=== PATIENT | female | born 1970 | race Caucasian/White ===

== ENCOUNTER 2019-10-18 18:59 | Inpatient (IN) | payer OTHER ==
[2019-10-18 20:35] VITALS: BMI 27.3
--- NOTE | 2019-10-18 21:17 | HP ---
CIWA Score Nausea/Vomitin-Mild Nausea/No Vomiting Muscle Tremors: 4-Moderate,w/Arms Extend Anxiety: 1-Mildly Anxious Agitation: 1-Slight > Activity Paroxysmal Sweats: 3 Orientation: 1-Uncertain about Date Tacttile Disturbances: 2-Mild Itch/Numbness/Burn Auditory Disturbances: 0-None Visual Disturbances: 0-None Headache: 3-Moderate CIWA-Ar Total Score: 16 - Admission Criteria OASAS Guidelines: Admission for Medically Managed Detox: Requires at least one of the followin. CIWA greater than 12 2. Seizures within the past 24 hours 3. Delirium tremens within the past 24 hours 4. Hallucinations within the past 24 hours 5. Acute intervention needed for co occurring medical disorder 6. Acute intervention needed for co occurring psychiatric disorder 7. Severe withdrawal that cannot be handled at a lower level of care (continued vomiting, continued diarrhea, abnormal vital signs) requiring intravenous medication and/or fluids 8. Patient presents the following: CIWA greater than 12 Admission Criteria Met: Admission criteria met Admission ROS S - [facility] Chief Complaint: here for alcohol detox. Allergies/Adverse Reactions: Allergies Allergy/AdvReac Type Severity Reaction Status Date / Time No Known Allergies Allergy Verified 10/18/19 20:26 History of Present Illness: HERE FOR ALCOHOL DETOX. CLIENT IS REFERRED BY [facility] AFTER PRESENTING THERE FOR HELP. SHE REPORTS DAILY ALCOHOL INTAKE . LAST USE EARLIER TODAY DUE TO WITHDRAWAL SX'S. 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 DENIES AVH, SI, SEIZURE D/O. DENIES ANY SIGNIFICANT PERIOD OF CLEAN TIME. HOMELESS, UNEMPLOYED, DENIES LEGALS CLIENT REPORTS HEROIN ABUSE APPROX 1 TIME A MONTH STATES ITS NOT HER DRUG OF CHOICE. LAST USE 2 DAYS AGO 1 BAG Exam Limitations: Physical Impairment (AMBULATES WITH CANE 2/2 R SIDED WEAKNESS D/T STROKE) - Ebola screening Have you traveled outside of the country in the last 21 days: No Have you had contact with anyone from an Ebola affected area: No Do you have a fever: No Patient History - Patient Medical History Hx Anemia: No Hx Asthma: Yes Hx Chronic Obstructive Pulmonary Disease (COPD): No Hx Cancer: No Hx Cardiac Disorders: No Hx Congestive Heart Failure: No Hx Hypertension: Yes Hx Hypercholesterolemia: Yes Hx Pacemaker: No HX Cerebrovascular Accident: Yes (2011 WITH R SIDED WEAKNESS) Hx Seizures: No Hx Dementia: No Hx Diabetes: No Hx Gastrointestinal Disorders: No Hx Liver Disease: Yes (CIRRHOSIS) Hx Genitourinary Disorders: No Hx Sexually Transmitted Disorders: No Hx Renal Disease (ESRD): No Hx Thyroid Disease: No Hx Human Immunodeficiency Virus (HIV): No Hx Hepatitis C: Yes (NO TXMENT) Hx Depression: Yes Hx Suicide Attempt: No Hx Bipolar Disorder: Yes Hx Schizophrenia: No Other Medical History: DENIES - Patient Surgical History Past Surgical History: Yes Other Surgical History: FACIAL FX REPAIR Anesthesia Reaction: No - PPD History Previous Implant?: Yes Documented Results: Negative w/o proof Implanted On Prior [facility] Admission?: No PPD to be Administered?: Yes - Reproductive History Patient is a Female of Child Bearing Age (11 -55 yrs old): Yes Last Menstrual Period: 09/08/19 LMP comment: SPOTTED Patient : No ([facility] [place] - Smoking Cessation Smoking history: Current every day smoker Have you smoked in the past 12 months: Yes Aproximately how many cigarettes per day: 10 Cigars Per Day: 1 Hx Chewing Tobacco Use: No Initiated information on smoking cessation: Yes 'Breaking Loose' booklet given: 10/18/19 - Substance & Tx. History Hx Alcohol Use: Yes Hx Substance Use: Yes Substance Use Type: Alcohol, Cocaine, Heroin Hx Substance Use Treatment: Yes ([facility]) - Substances abused Alcohol Substance route: Oral Frequency: Daily Amount used: liquor- 2 pints, beer- 1 six pack Age of first use: 18 Date of last use: 10/18/19 (1 PINT) Crack Substance route: Smoking Frequency: 3-6 times per week (3X) Amount used: 3 dimes Age of first use: 32 Date of last use: 10/17/19 Marijuana/Hashish Substance route: Smoking Frequency: 3-6 times per week (3X) Amount used: 1 DIME BAG Age of first use: 32 Date of last use: 10/17/19 Heroin Substance route: Smoking Frequency: 1-3 times last 30 days Amount used: 1 bag Age of first use: 22 Date of last use: 10/17/19 Admission Physical Exam BHS - Vital Signs Vital Signs: Vital Signs - 24 hr 10/18/19 20:20 Temperature 98.9 F Pulse Rate 100 H Respiratory 18 Rate Blood Pressure 116/74 - Physical General Appearance: Yes: Moderate Distress, Tremorous, Irritable, Anxious, Other (LEFT FACIAL DROOP) HEENTM: Yes: EOMI, Normocephalic, Normal Voice, MANISHA, Pharynx Normal, Other ( MISSING TEETH) Respiratory: Yes: Chest Non-Tender, Lungs Clear, Normal Breath Sounds, No Respiratory Distress, No Accessory Muscle Use Neck: Yes: No masses,lesions,Nodules, Supple, Trachea in good position Breast: Yes: Breasts Symetrical Cardiology: Yes: Regular Rhythm, Regular Rate, S1, S2 Abdominal: Yes: Normal Bowel Sounds, Non Tender, Soft Genitourinary: Yes: Within Normal Limits Back: Yes: Normal Inspection Musculoskeletal: Yes: Other (UNSTEADY GAIT AMBULATES WITH CANE) Extremities: Yes: Normal Range of Motion, Non-Tender, Tremors, Other (LEFT ARM PARALYSIS 2/2 TO STROKE WITH LLE WEAKNESS) Neurological: Yes: Fully Oriented, Alert, Motor Strength 5/5, Depressed Affect Integumentary: Yes: Dry, Warm, Other (FLUSHED) Lymphatic: Yes: Within Normal Limits - Diagnostic (1) Alcohol dependence with withdrawal, uncomplicated Current Visit: Yes Status: Acute (2) Non compliance w medication regimen Current Visit: Yes Status: Suspected Comment: CLIENT REPORTS NOT TAKING MEDS DUE TO ALCOHOL ABUSE (3) Cerebrovascular accident (CVA) with right hemiparesis Current Visit: Yes Status: Chronic (4) HTN (hypertension) Current Visit: Yes Status: Chronic Qualifiers: Hypertension type: essential hypertension Qualified Code(s): I10 - Essential (primary) hypertension (5) HLD (hyperlipidemia) Current Visit: Yes Status: Chronic Qualifiers: Hyperlipidemia type: unspecified Qualified Code(s): E78.5 - Hyperlipidemia , unspecified (6) Depressed affect Current Visit: Yes Status: Acute (7) Ambulates with cane Current Visit: Yes Status: Chronic (8) Asthma Current Visit: Yes Status: Chronic Qualifiers: Asthma severity: mild Asthma persistence: intermittent Asthma complication type: unspecified Qualified Code(s): J45.20 - Mild intermittent asthma, uncomplicated (9) Cirrhosis of liver Current Visit: Yes Status: Chronic Qualifiers: Hepatic cirrhosis type: alcoholic cirrhosis (10) History of hepatitis C Current Visit: Yes Status: Chronic (11) Paralysis of left upper extremity Current Visit: Yes Status: Chronic Cleared for Admission S - Detox or Rehab S Level of Care: Medically Managed Detox Regimen/Protocol: Librium Claeared for Rehab Admission: No Breathalyzer - Breathalyzer Breathalyzer: 0.040 Urine Drug Screen - Test Device Lot number: [id number] Expiration date: 05/07/21 - Control Is test valid?: Yes - Results Drug screen NEGATIVE: No Urine drug screen results: BZO-Benzodiazepines Inpatient Rehab Admission - Rehab Decision to Admit Inpatient rehab admission?: No
[2019-10-18] MEDS ORDERED: ONDANSETRON *ODT* 4 MG TABLET SL PRN (21:26)
[2019-10-18] MEDS ORDERED: MAG HYDROX/AL HYDROX/SIMETH 30 ML UNIT-DOSE CUP PO PRN (21:26)
[2019-10-18] MEDS ORDERED: IBUPROFEN 400 MG TABLET (FP) PO PRN (21:26)
[2019-10-18] MEDS ORDERED: NICOTINE POLACRILEX 2 MG GUM BUC PRN (21:26)
[2019-10-18] MEDS ORDERED: guaiFENesin 200 MG/10 ML 10 ML UNIT-DOSE CUPS PO PRN (21:26)
[2019-10-18] MEDS ORDERED: hydrOXYzine PAMOATE 25 MG CAPSULE (FP) PO PRN (21:26)
[2019-10-18] MEDS ORDERED: ACETAMINOPHEN 325 MG TABLET (FP) PO PRN ×2 (21:26)
[2019-10-18] MEDS ORDERED: MENTHOL/PHENOL 1 EACH UD MM PRN (21:26)
[2019-10-18] MEDS ORDERED: DICYCLOMINE HCL 10 MG CAPSULE PO PRN (21:26)
[2019-10-18] MEDS ORDERED: METHOCARBAMOL 500 MG TABLET PO PRN (21:26)
[2019-10-18] MEDS ORDERED: MAGNESIUM CITRATE 300 ML BOTTLE PO PRN (21:26)
[2019-10-18] MEDS ORDERED: MAGNESIUM HYDROX 2400MG/30ML ORAL SUSPENSION 30 ML CUP PO PRN (21:26)
[2019-10-18] MEDS ORDERED: P-EPHED 60MG/TRIPROLIDI 2.5MG TABLET PO PRN (21:26)
[2019-10-18] MEDS ORDERED: chlordiazePOXIDE HCL 25 MG CAPSULE PO PRN (21:26)
[2019-10-18] MEDS: chlordiazePOXIDE HCL 25 MG CAPSULE PO SCH (22:54)
[2019-10-18] MEDS: THIAMINE HCL 100 MG TABLET (FP) PO SCH (22:54)
[2019-10-19] MEDS: chlordiazePOXIDE HCL 25 MG CAPSULE PO SCH ×3 (06:02→18:08)
--- NOTE | 2019-10-19 09:01 | EKG ---
Test Reason : Blood Pressure : / mmHG Vent. Rate : 093 BPM Atrial Rate : 093 BPM P-R Int : 132 ms QRS Dur : 076 ms QT Int : 360 ms P-R-T Axes : 048 035 039 degrees QTc Int : 447 ms NORMAL SINUS RHYTHM NORMAL ECG NO PREVIOUS ECGS AVAILABLE Confirmed by SHANNON ZAMORA MD ([id number]) on 10/19/2019 9:00:48 AM Referred By: Confirmed By:SHANNON ZAMORA MD
[2019-10-19 09:51] LABS: HEMATOCRIT 35.8 % (32.4-45.2); HEMOGLOBIN 11.9 GM/dL (10.7-15.3); MCH 30.8 pg (25.7-33.7); MCHC 33.1 g/dl (32.0-36.0); MEAN CELL VOLUME 93.2 fl (80-96); MEAN PLT VOLUME 10.1 fl (7.5-11.1); PLATELET COUNT 128 K/MM3 (134-434); RBC 3.85 M/mm3 (3.60-5.2); RDW 15.1 % (11.6-15.6); WHITE BLOOD COUNT 5.8 K/mm3 (4.0-10.0)
[2019-10-19 10:00] LABS: ALBUMIN 3.3 g/dl (3.4-5.0); BILIRUBIN,TOTAL 0.6 mg/dL (0.2-1); CALCIUM 8.8 mg/dL (8.5-10.1); CREATININE 0.7 mg/dL (0.55-1.3); POTASSIUM 3.4 mmol/L (3.5-5.1); TOT PROT 7.4 g/dl (6.4-8.2)
[2019-10-19] MEDS: NICOTINE 14 MG/24 HOURS TOPICAL PATCH TD SCH (10:03)
[2019-10-19] MEDS: ASPIRIN 81 MG CHEWABLE TABLETS PO SCH (10:03)
[2019-10-19] MEDS: PRENATAL VITAMINS W/ FOLIC ACID TABLET (FP) PO SCH (10:03)
--- NOTE | 2019-10-19 12:32 | PN ---
S CIWA - CIWA Score Nausea/Vomitin-No Nausea/No Vomiting Muscle Tremors: 2 Anxiety: 2 Agitation: 3 Paroxysmal Sweats: 2 Orientation: 0-Oriented Tacttile Disturbances: 0-None Auditory Disturbances: 0-None Visual Disturbances: 0-None Headache: 0-None Present CIWA-Ar Total Score: 9 BHS Progress Note (SOAP) Subjective: sweats shakes irritable agitation restless body aches Objective: 10/19/19 12:44 Vital Signs Temperature 97.8 F 10/19/19 09:36 Pulse Rate 84 10/19/19 09:36 Respiratory Rate 18 10/19/19 09:36 Blood Pressure 113/67 10/19/19 09:36 O2 Sat by Pulse Oximetry (%) Laboratory Tests 10/19/19 10/19/19 10/19/19 07:15 07:15 07:15 WBC 5.8 RBC 3.85 Hgb 11.9 Hct 35.8 MCV 93.2 MCH 30.8 MCHC 33.1 RDW 15.1 Plt Count 128 L MPV 10.1 Sodium 139 Potassium 3.4 L Chloride 103 Carbon Dioxide 30 Anion Gap 6 L BUN 23.0 H Creatinine 0.7 Est GFR (CKD-EPI)AfAm 120.43 Est GFR (CKD-EPI)NonAf 103.90 Random Glucose 101 Calcium 8.8 Total Bilirubin 0.6 AST 72 H ALT 100 H Alkaline Phosphatase 85 Total Protein 7.4 Albumin 3.3 L RPR Titer Nonreactive aaox3 ambulating no acute distress hypokalemia 3.4 noted Assessment: 10/19/19 12:47 withdrawals Plan: continue detox increase fluids kdur 20meq x 2 days
[2019-10-19] MEDS: ENALAPRIL MALEATE 10 MG TABLET (FP) PO SCH (14:22)
--- NOTE | 2019-10-19 17:26 | CONSULT ---
[facility] Psychiatric Consult - Data Date of interview: 10/19/19 Admission source: [facility] Identifying data: First visit at [facility] and admission to [address] [place] [address] for this 48 y/o female reffered from [facility] for detoxification treatment. BRAYDON issues : heroin, alcohol, cocaine/crack, cannabis, nicotine. Patient is single, a mother of five, homeless (longterm resident), unemployed, disbaled and currently deprived of financial assistance ([employer]I benefits revoked for failure to keep revalidation appointments). Substance Abuse History: Discussed with the patient. Details in current [facility] report as follows : Smoking history: Current every day smoker. Have you smoked in the past 12 months: Yes. Aproximately how many cigarettes per day: 10. Cigars Per Day: 1. Hx Chewing Tobacco Use: No. Initiated information on smoking cessation: Yes. 'Breaking Loose' booklet given: 10/18/19. - Substance & Tx. History. Hx Alcohol Use: Yes. Hx Substance Use: Yes. Substance Use Type : Alcohol, Cocaine, Heroin. Hx Substance Use Treatment: Yes ([facility]). - Substances abused. Alcohol. Substance route: Oral. Frequency: Daily. Amount used: liquor- 2 pints, beer- 1 six pack. Age of first use: 18. Date of last use: 10/18/19 (1 PINT). Crack. Substance route: Smoking. Frequency: 3 -6 times per week (3X). Amount used: 3 dimes. Age of first use: 32. Date of last use: 10/17/19. Marijuana/Hashish. Substance route: Smoking. Frequency : 3-6 times per week (3X). Amount used: 1 DIME BAG. Age of first use: 32. Date of last use: 10/17/19. Heroin. Substance route: Smoking. Frequency: 1 -3 times last 30 days. Amount used: 1 bag. Age of first use: 22. Date of last use: 10/17/19 Medical History: Medical profile is remarkable for dyslipidemia, hypertension, bronchial asthma, hepatitis C, cirrosis of the liver and antecedent of CVA with left-sided weakness. Patient uses a cane for ambulation (noted at bedside). Psychiatric History: Patient admits to a history of psychiatric hospitalizations (facilities in [place]). None in [place]. Ms Montoya states that she has been diagnosed with bipolar disorder and treated, in the past, with valproate + seroquel + trazodone. She reports total non-adherence to medications and psychiatric OPD care. " I have not taken seroquel for some months now. I take depakote sometimes. I go to emergency rooms hwenever I need medications." She used to see a cook apprentice pastry Bindu Armas at the [facility] in [facility]. Patient denies recent history of suicide attempts (recalls one overdose with pills years ago). Physical/Sexual Abuse/Trauma History: Severe stressors : homelessness, poverty, lack of a support network, addictions and serious medical illnesses. Additional Comment: Urine drug screen results: BZO-Benzodiazepines. Noted. Mental Status Exam - Mental Status Exam Alert and Oriented to: Time, Place, Person Cognitive Function: Good Patient Appearance: Unkempt, Disheveled Mood: Withdrawn, Hopeful Affect: Mood Congruent, Constricted Patient Behavior: Fatigued, Appropriate, Cooperative Speech Pattern: Clear Voice Loudness: Normal Thought Process: Goal Oriented Thought Disorder: Not Present Hallucinations: Denies Suicidal Ideation: Denies Homicidal Ideation: Denies Insight/Judgement: Poor Sleep: Fair Appetite: Good Gait/Station: Other (not observed. Not out of bed for entire shift) Psychiatric Findings - Problem List (Junior 1, 2,3) (1) Alcohol dependence with withdrawal, uncomplicated Current Visit: Yes Status: Acute (2) Nicotine dependence Current Visit: Yes Status: Chronic (3) Substance induced mood disorder Current Visit: Yes Status: Chronic (4) History of bipolar disorder Current Visit: Yes Status: Chronic (5) Non-compliance Current Visit: Yes Status: Chronic - Initial Treatment Plan Initial Treatment Plan: Psychoeducation. Sleep hygiene. Detoxification. Support. Observation.
[2019-10-19] MEDS: BISMUTH SUBSALICYLATE 524 MG/30 ML UD PO PRN (18:10)
[2019-10-20] MEDS: chlordiazePOXIDE HCL 25 MG CAPSULE PO SCH ×5 (00:16→22:11)
[2019-10-20] MEDS: THIAMINE HCL 100 MG TABLET (FP) PO SCH ×2 (00:16→22:11)
[2019-10-20] MEDS: MELATONIN 5 MG TABLETS PO PRN ×2 (02:17→22:11)
[2019-10-20] MEDS: ASPIRIN 81 MG CHEWABLE TABLETS PO SCH (10:37)
[2019-10-20] MEDS: HYDROCHLOROTHIAZIDE 25 MG TABLET (FP) PO SCH (10:37)
[2019-10-20] MEDS: NICOTINE 14 MG/24 HOURS TOPICAL PATCH TD SCH (10:37)
[2019-10-20] MEDS: PRENATAL VITAMINS W/ FOLIC ACID TABLET (FP) PO SCH (10:37)
[2019-10-20] MEDS: ENALAPRIL MALEATE 10 MG TABLET (FP) PO SCH (10:37)
[2019-10-20 12:25] LABS: PH,URINE 6.5 (5.0-8.0); URINE APPEARANCE CLOUDY; URINE BILIRUBIN NEGATIVE (NEGATIVE); URINE COLOR YELLOW; URINE GLUCOSE (UA) NEGATIVE (NEGATIVE); URINE KETONE NEGATIVE (NEGATIVE); URINE LEUK ESTERASE NEGATIVE (NEGATIVE); URINE NITRITE NEGATIVE (NEGATIVE); URINE PROTEIN NEGATIVE (NEGATIVE)
--- NOTE | 2019-10-20 15:50 | PN ---
[facility] CIWA - CIWA Score Nausea/Vomitin-No Nausea/No Vomiting Muscle Tremors: 2 Anxiety: 2 Agitation: 1-Slight > Activity Paroxysmal Sweats: 2 Orientation: 0-Oriented Tacttile Disturbances: 0-None Auditory Disturbances: 0-None Visual Disturbances: 0-None Headache: 0-None Present CIWA-Ar Total Score: 7 S Progress Note (SOAP) Subjective: Interrupted sleep, had diarrhea which now resolved Objective: 10/20/19 15:46 Last Vital Signs Temp Pulse Resp BP Pulse Ox 97.9 F 85 18 102/62 10/20/19 09:33 10/20/19 09:33 10/20/19 09:33 10/20/19 09:33 Laboratory Tests 10/19/19 10/19/19 10/19/19 07:15 07:15 07:15 WBC 5.8 RBC 3.85 Hgb 11.9 Hct 35.8 MCV 93.2 MCH 30.8 MCHC 33.1 RDW 15.1 Plt Count 128 L MPV 10.1 Sodium 139 Potassium 3.4 L Chloride 103 Carbon Dioxide 30 Anion Gap 6 L BUN 23.0 H Creatinine 0.7 Est GFR (CKD-EPI)AfAm 120.43 Est GFR (CKD-EPI)NonAf 103.90 Random Glucose 101 Calcium 8.8 Total Bilirubin 0.6 AST 72 H ALT 100 H Alkaline Phosphatase 85 Total Protein 7.4 Albumin 3.3 L Urine Color Urine Appearance Urine pH Ur Specific [place] Urine Protein Urine Glucose (UA) Urine Ketones Urine Blood Urine Nitrite Urine Bilirubin Urine Urobilinogen Ur Leukocyte Esterase RPR Titer Nonreactive 10/20/19 Unknown WBC RBC Hgb Hct MCV MCH MCHC RDW Plt Count MPV Sodium Potassium Chloride Carbon Dioxide Anion Gap BUN Creatinine Est GFR (CKD-EPI)AfAm Est GFR (CKD-EPI)NonAf Random Glucose Calcium Total Bilirubin AST ALT Alkaline Phosphatase Total Protein Albumin Urine Color Yellow Urine Appearance Cloudy Urine pH 6.5 Ur Specific [place] 1.022 Urine Protein Negative Urine Glucose (UA) Negative Urine Ketones Negative Urine Blood Negative Urine Nitrite Negative Urine Bilirubin Negative Urine Urobilinogen 1.0 Ur Leukocyte Esterase Negative RPR Titer Labs reviewed: plt 128 (low), K 3.4 (low), bun 23 (high), AST/ALT 72/100 (high) , Alb 3.3 (low) Assessment: 10/20/19 15:51 Withdrawal sxs Noted with thrombocytopenia, hypokalemia, azotemia, transaminitis and hypoalbuminemia Plan: Continue detox Thrombocytopenia: most likely due to alcoholism, encouraged abstinence, follow up with PCP for monitoring Hypokalemia: K Dur 40 Meq PO x 1 dose, repeat serum K level in AM Azotemia: encouraged PO water intake, repeat bun level in AM Transaminitis: most likely r/t alcoholism, repeat AST/ALT Hypoalbuminemia: encouraged diet
[2019-10-20] MEDS ORDERED: POTASSIUM CHLORIDE ORAL LIQUID 20 MEQ/15 ML PO ONE (15:58)
[2019-10-21] MEDS ORDERED: chlordiazePOXIDE HCL 10 MG CAPSULE PO PRN
[2019-10-21] MEDS: chlordiazePOXIDE HCL 10 MG CAPSULE PO SCH ×4 (06:58→22:15)
[2019-10-21] MEDS: NICOTINE 14 MG/24 HOURS TOPICAL PATCH TD SCH (10:34)
[2019-10-21] MEDS: PRENATAL VITAMINS W/ FOLIC ACID TABLET (FP) PO SCH (10:34)
[2019-10-21] MEDS: ENALAPRIL MALEATE 10 MG TABLET (FP) PO SCH (10:34)
[2019-10-21] MEDS: HYDROCHLOROTHIAZIDE 25 MG TABLET (FP) PO SCH (10:34)
[2019-10-21] MEDS: ASPIRIN 81 MG CHEWABLE TABLETS PO SCH (10:35)
[2019-10-21 11:06] LABS: BLOOD UREA NITROGEN 16.7 mg/dL (7-18)
--- NOTE | 2019-10-21 11:54 | PN ---
S CIWA - CIWA Score Nausea/Vomitin-No Nausea/No Vomiting Muscle Tremors: 2 Anxiety: 1-Mildly Anxious Agitation: 2 Paroxysmal Sweats: No Perspiration Orientation: 0-Oriented Tacttile Disturbances: 0-None Auditory Disturbances: 0-None Visual Disturbances: 0-None Headache: 0-None Present CIWA-Ar Total Score: 5 BHS Progress Note (SOAP) Subjective: little bit of sweats feeling better Objective: 10/21/19 11:50 Vital Signs Temperature 97.7 F 10/21/19 11:13 Pulse Rate 84 10/21/19 11:13 Respiratory Rate 18 10/21/19 11:13 Blood Pressure 110/67 10/21/19 11:13 O2 Sat by Pulse Oximetry (%) Laboratory Tests 10/18/19 10/19/19 10/19/19 21:00 07:15 07:15 WBC 5.8 RBC 3.85 Hgb 11.9 Hct 35.8 MCV 93.2 MCH 30.8 MCHC 33.1 RDW 15.1 Plt Count 128 L MPV 10.1 Sodium 139 Potassium 3.4 L Chloride 103 Carbon Dioxide 30 Anion Gap 6 L BUN 23.0 H Creatinine 0.7 Est GFR (CKD-EPI)AfAm 120.43 Est GFR (CKD-EPI)NonAf 103.90 Random Glucose 101 Calcium 8.8 Total Bilirubin 0.6 AST 72 H ALT 100 H Alkaline Phosphatase 85 Total Protein 7.4 Albumin 3.3 L Urine Color Urine Appearance Urine pH Ur Specific [place] Urine Protein Urine Glucose (UA) Urine Ketones Urine Blood Urine Nitrite Urine Bilirubin Urine Urobilinogen Ur Leukocyte Esterase POC Urine HCG, Qual Negative RPR Titer 10/19/19 10/20/19 10/21/19 07:15 Unknown 08:00 WBC RBC Hgb Hct MCV MCH MCHC RDW Plt Count MPV Sodium Potassium 4.0 Chloride Carbon Dioxide Anion Gap BUN 16.7 Creatinine Est GFR (CKD-EPI)AfAm Est GFR (CKD-EPI)NonAf Random Glucose Calcium Total Bilirubin AST 55 H ALT 97 H Alkaline Phosphatase Total Protein Albumin Urine Color Yellow Urine Appearance Cloudy Urine pH 6.5 Ur Specific [place] 1.022 Urine Protein Negative Urine Glucose (UA) Negative Urine Ketones Negative Urine Blood Negative Urine Nitrite Negative Urine Bilirubin Negative Urine Urobilinogen 1.0 Ur Leukocyte Esterase Negative POC Urine HCG, Qual RPR Titer Nonreactive liver enzymes improving aaox3 ambulating with cane safely no acute distress Assessment: 10/21/19 11:54 mild withdrawals Plan: continue detox
[2019-10-21] MEDS: BISMUTH SUBSALICYLATE 524 MG/30 ML UD PO PRN (19:11)
[2019-10-21] MEDS: THIAMINE HCL 100 MG TABLET (FP) PO SCH (21:15)
[2019-10-21] MEDS: MELATONIN 5 MG TABLETS PO PRN (21:15)
[2019-10-22] MEDS: chlordiazePOXIDE HCL 10 MG CAPSULE PO SCH ×2 (06:25→07:21)
[2019-10-22 08:54] VITALS: BP 99/66; PULSE 69; TEMP 97.5
--- NOTE | 2019-10-22 09:38 | PN ---
S Progress Note Note: pt did not want to stay for to complete her detox. pt was advised to stay and prevent seizures, DT, OD, and or loss; pt chose to sign out AMA.
--- NOTE | 2019-10-22 09:41 | DS ---
[facility] Detox Discharge Summary Admission Date: 10/18/19 - History Present History: Alcohol Dependence - Physical Exam Results Vital Signs: Vital Signs Temperature 97.5 F L 10/22/19 05:00 Pulse Rate 69 10/22/19 05:00 Respiratory Rate 10/22/19 05:00 Blood Pressure 99/66 10/22/19 05:00 O2 Sat by Pulse Oximetry (%) Pertinent Admission Physical Exam Findings: Vital Signs Temperature 97.5 F L 10/22/19 05:00 Pulse Rate 69 10/22/19 05:00 Respiratory Rate 10/22/19 05:00 Blood Pressure 99/66 10/22/19 05:00 O2 Sat by Pulse Oximetry (%) Laboratory Tests 10/18/19 10/19/19 10/19/19 21:00 07:15 07:15 WBC 5.8 RBC 3.85 Hgb 11.9 Hct 35.8 MCV 93.2 MCH 30.8 MCHC 33.1 RDW 15.1 Plt Count 128 L MPV 10.1 Sodium 139 Potassium 3.4 L Chloride 103 Carbon Dioxide 30 Anion Gap 6 L BUN 23.0 H Creatinine 0.7 Est GFR (CKD-EPI)AfAm 120.43 Est GFR (CKD-EPI)NonAf 103.90 Random Glucose 101 Calcium 8.8 Total Bilirubin 0.6 AST 72 H ALT 100 H Alkaline Phosphatase 85 Total Protein 7.4 Albumin 3.3 L Urine Color Urine Appearance Urine pH Ur Specific [place] Urine Protein Urine Glucose (UA) Urine Ketones Urine Blood Urine Nitrite Urine Bilirubin Urine Urobilinogen Ur Leukocyte Esterase POC Urine HCG, Qual Negative RPR Titer 10/19/19 10/20/19 10/21/19 07:15 Unknown 08:00 WBC RBC Hgb Hct MCV MCH MCHC RDW Plt Count MPV Sodium Potassium 4.0 Chloride Carbon Dioxide Anion Gap BUN 16.7 Creatinine Est GFR (CKD-EPI)AfAm Est GFR (CKD-EPI)NonAf Random Glucose Calcium Total Bilirubin AST 55 H ALT 97 H Alkaline Phosphatase Total Protein Albumin Urine Color Yellow Urine Appearance Cloudy Urine pH 6.5 Ur Specific [place] 1.022 Urine Protein Negative Urine Glucose (UA) Negative Urine Ketones Negative Urine Blood Negative Urine Nitrite Negative Urine Bilirubin Negative Urine Urobilinogen 1.0 Ur Leukocyte Esterase Negative POC Urine HCG, Qual RPR Titer Nonreactive aaox3 ambulating no acute distress - Treatment Hospital Course: Detox Protocol Followed, Detoxed Safely, Responded well, Discharged Condition Good, Rehab Referral Accepted Patient has Accepted a Rehab Referral to: referral provided - Medication Discharge Medications: Ambulatory Orders Aspirin [ASA -] 81 mg PO DAILY 10/18/19 Divalproex [Depakote -] 500 mg PO BID 10/18/19 Enalapril/Hydrochlorothiazide [Vaseretic 10-25 mg Tablet] 1 each PO DAILY Gabapentin [Neurontin -] 100 mg PO TID 10/18/19 Naproxen [Naprosyn -] 250 mg PO DAILY 10/18/19 Simvastatin [Zocor] 20 mg PO HS 10/18/19 - Diagnosis (1) Alcohol dependence with withdrawal, uncomplicated Current Visit: Yes Status: Chronic (2) Depressed affect Current Visit: Yes Status: Acute (3) Ambulates with cane Current Visit: Yes Status: Chronic (4) Asthma Current Visit: Yes Status: Chronic Qualifiers: Asthma severity: mild Asthma persistence: intermittent Asthma complication type: unspecified Qualified Code(s): J45.20 - Mild intermittent asthma, uncomplicated (5) Cerebrovascular accident (CVA) with right hemiparesis Current Visit: Yes Status: Chronic (6) Cirrhosis of liver Current Visit: Yes Status: Chronic Qualifiers: Hepatic cirrhosis type: alcoholic cirrhosis (7) HLD (hyperlipidemia) Current Visit: Yes Status: Chronic Qualifiers: Hyperlipidemia type: unspecified Qualified Code(s): E78.5 - Hyperlipidemia , unspecified (8) HTN (hypertension) Current Visit: Yes Status: Chronic Qualifiers: Hypertension type: essential hypertension Qualified Code(s): I10 - Essential (primary) hypertension (9) History of bipolar disorder Current Visit: Yes Status: Chronic (10) History of hepatitis C Current Visit: Yes Status: Chronic (11) Nicotine dependence Current Visit: Yes Status: Chronic Qualifiers: Nicotine product type: cigarettes Substance use status: uncomplicated Qualified Code(s): F17.210 - Nicotine dependence, cigarettes, uncomplicated (12) Non-compliance Current Visit: Yes Status: Chronic (13) Paralysis of left upper extremity Current Visit: Yes Status: Chronic (14) Substance induced mood disorder Current Visit: Yes Status: Chronic (15) Non compliance w medication regimen Current Visit: Yes Status: Suspected - AMA Did Patient Leave Against Medical Advice: Yes
[2019-10-22] MEDS: NICOTINE 14 MG/24 HOURS TOPICAL PATCH TD SCH (10:17)
[2019-10-22] MEDS: ASPIRIN 81 MG CHEWABLE TABLETS PO SCH (10:17)
[2019-10-22] MEDS: PRENATAL VITAMINS W/ FOLIC ACID TABLET (FP) PO SCH (10:17)
[2019-10-22] MEDS: HYDROCHLOROTHIAZIDE 25 MG TABLET (FP) PO SCH (10:17)
[2019-10-22] MEDS: ENALAPRIL MALEATE 10 MG TABLET (FP) PO SCH (10:40)
[2019-10-23] MEDS ORDERED: chlordiazePOXIDE HCL 10 MG CAPSULE PO ONE (05:00)
== END 2019-10-22 12:48 | disposition left against medical advice (07) | DRG 770 ==
LOC: YASAS 18:59 → Y6N 22:06
PROVIDERS: ADMIT Allergy & Immunology; ATTEND Allergy & Immunology
PROC: HZ2ZZZZ Detoxification Services for Substance Abuse Treatment (ICD-10-PCS; principal; 2019-10-18)
DX: F10.230 Alcohol dependence with withdrawal, uncomplicated (principal); F17.210 Nicotine dependence, cigarettes, uncomplicated; F32.9 Major depressive disorder, single episode, unspecified; F19.24 Other psychoactive substance dependence with psychoactive substance-induced mood disorder; I10 Essential (primary) hypertension; J45.20 Mild intermittent asthma, uncomplicated; I69.351 Hemiplegia and hemiparesis following cerebral infarction affecting right dominant side; K70.30 Alcoholic cirrhosis of liver without ascites; E78.5 Hyperlipidemia, unspecified; E87.6 Hypokalemia; D69.6 Thrombocytopenia, unspecified; R79.89 Other specified abnormal findings of blood chemistry; R77.0 Abnormality of albumin; B18.2 Chronic viral hepatitis C; R26.2 Difficulty in walking, not elsewhere classified; Z99.89 Dependence on other enabling machines and devices; Z91.14 Patient's other noncompliance with medication regimen; Z91.19 Patient's noncompliance with other medical treatment and regimen
CPT/HCPCS: 36415; 80053; 81003; 81025; 84132; 84450; 84460; 84520; 85027; 86593; 93005; 93010

== ENCOUNTER 2021-01-28 15:58 | Inpatient (IN) | payer OTHER ==
[2021-01-28 17:42] VITALS: BMI 28.1
[2021-01-28] MEDS ORDERED: MAGNESIUM HYDROX 2400MG/30ML ORAL SUSPENSION 30 ML CUP PO PRN (19:23)
[2021-01-28] MEDS ORDERED: LORazepam 1 MG TABLET PO PRN (19:23)
[2021-01-28] MEDS ORDERED: hydrOXYzine PAMOATE 25 MG CAPSULE (FP) PO PRN (19:23)
[2021-01-28] MEDS ORDERED: IBUPROFEN 400 MG TABLET (FP) PO PRN (19:23)
[2021-01-28] MEDS ORDERED: BISMUTH SUBSALICYLATE 524 MG/30 ML UD PO PRN (19:23)
[2021-01-28] MEDS ORDERED: MAG HYDROX/AL HYDROX/SIMETH 30 ML UNIT-DOSE CUP PO PRN (19:23)
[2021-01-28] MEDS ORDERED: METHOCARBAMOL 500 MG TABLET PO PRN (19:23)
[2021-01-28] MEDS ORDERED: ACETAMINOPHEN 325 MG TABLET (FP) PO PRN (19:23)
[2021-01-28] MEDS ORDERED: ONDANSETRON *ODT* 4 MG TABLET SL PRN (19:23)
[2021-01-28] MEDS ORDERED: MENTHOL/PHENOL 1 EACH UD MM PRN (19:23)
[2021-01-28] MEDS ORDERED: NICOTINE POLACRILEX 2 MG GUM BUC PRN (19:23)
[2021-01-28] MEDS ORDERED: MAGNESIUM CITRATE 300 ML BOTTLE PO PRN (19:23)
[2021-01-28] MEDS: ATORVASTATIN CA 10 MG TABLET (FP) PO SCH (23:07)
[2021-01-28] MEDS: GABAPENTIN 100 MG CAPSULE PO SCH (23:07)
[2021-01-28] MEDS: THIAMINE HCL 100 MG TABLET (FP) PO SCH (23:07)
[2021-01-28] MEDS: LORazepam 2 MG TABLET PO SCH (23:07)
[2021-01-28] MEDS: MELATONIN 5 MG TABLETS PO SCH (23:08)
[2021-01-29] MEDS: GABAPENTIN 100 MG CAPSULE PO SCH ×3 (05:40→23:31)
[2021-01-29] MEDS: LORazepam 2 MG TABLET PO SCH ×4 (05:40→23:32)
[2021-01-29] MEDS ORDERED: PATIENT'S OWN MEDICATION (NON-FORMULARY) (Enalapril/Hydrochlorothiazide [Vaseretic 10-25 M PO SCH (10:00)
[2021-01-29] MEDS: ASPIRIN 81 MG CHEWABLE TABLETS PO SCH (10:08)
[2021-01-29] MEDS: NICOTINE 21 MG/24 HOURS TOPICAL PATCH TD SCH (10:08)
[2021-01-29] MEDS: ENALAPRIL MALEATE 10 MG TABLET PO SCH (10:08)
[2021-01-29] MEDS: HYDROCHLOROTHIAZIDE 25 MG TABLET (FP) PO SCH (10:08)
[2021-01-29] MEDS: PRENATAL VITAMINS W/ FOLIC ACID TABLET (FP) PO SCH (10:09)
[2021-01-29 11:39] LABS: HEMATOCRIT 39.5 % (32.4-45.2); HEMOGLOBIN 13.4 GM/dL (10.7-15.3); MCH 32.7 pg (25.7-33.7); MEAN CELL VOLUME 96.1 fl (80-96); MEAN PLT VOLUME 9.8 fl (7.5-11.1); PLATELET COUNT 115 K/MM3 (134-434); RDW 13.7 % (11.6-15.6); WHITE BLOOD COUNT 5.2 K/mm3 (4.0-10.0)
[2021-01-29 11:46] LABS: CALCIUM 9.6 mg/dL (8.5-10.1)
[2021-01-29 11:47] LABS: ALBUMIN 3.4 g/dl (3.4-5.0); BLOOD UREA NITROGEN 23.9 mg/dL (7-18)
[2021-01-29 11:50] LABS: CREATININE 0.7 mg/dL (0.55-1.3)
[2021-01-29 11:51] LABS: BILIRUBIN,TOTAL 0.5 mg/dL (0.2-1)
[2021-01-29 11:53] LABS: TOT PROT 7.8 g/dl (6.4-8.2)
[2021-01-29] MEDS: ACETAMINOPHEN 325 MG TABLET (FP) PO PRN (18:09)
[2021-01-29] MEDS: ALBUTEROL SO4 HFA INHALER IH PRN (20:02)
[2021-01-29] MEDS: THIAMINE HCL 100 MG TABLET (FP) PO SCH (23:31)
[2021-01-29] MEDS: ATORVASTATIN CA 10 MG TABLET (FP) PO SCH (23:31)
[2021-01-29] MEDS: traZODone HCL 50 MG TABLET (FP) PO SCH (23:31)
[2021-01-29] MEDS: MELATONIN 5 MG TABLETS PO SCH (23:31)
[2021-01-30] MEDS: GABAPENTIN 100 MG CAPSULE PO SCH ×3 (07:33→23:34)
[2021-01-30] MEDS: LORazepam 1 MG TABLET PO SCH ×4 (07:33→23:33)
[2021-01-30] MEDS: ENALAPRIL MALEATE 10 MG TABLET PO SCH (10:20)
[2021-01-30] MEDS: ASPIRIN 81 MG CHEWABLE TABLETS PO SCH (10:20)
[2021-01-30] MEDS: HYDROCHLOROTHIAZIDE 25 MG TABLET (FP) PO SCH (10:20)
[2021-01-30] MEDS: PRENATAL VITAMINS W/ FOLIC ACID TABLET (FP) PO SCH (10:21)
[2021-01-30] MEDS: NICOTINE 21 MG/24 HOURS TOPICAL PATCH TD SCH (10:21)
[2021-01-30] MEDS: ALBUTEROL SO4 HFA INHALER IH PRN ×2 (10:23→17:56)
[2021-01-30 11:22] LABS: BLOOD UREA NITROGEN 17.5 mg/dL (7-18)
[2021-01-30] MEDS: ACETAMINOPHEN 325 MG TABLET (FP) PO PRN (17:52)
[2021-01-30] MEDS: traZODone HCL 50 MG TABLET (FP) PO SCH (23:33)
[2021-01-30] MEDS: ATORVASTATIN CA 10 MG TABLET (FP) PO SCH (23:33)
[2021-01-30] MEDS: THIAMINE HCL 100 MG TABLET (FP) PO SCH (23:34)
[2021-01-30] MEDS: MELATONIN 5 MG TABLETS PO SCH (23:34)
[2021-01-31] MEDS ORDERED: LORazepam 0.5 MG TABLET PO PRN
[2021-01-31] MEDS: LORazepam 0.5 MG TABLET PO SCH ×4 (06:36→23:27)
[2021-01-31] MEDS: GABAPENTIN 100 MG CAPSULE PO SCH ×3 (06:36→23:28)
[2021-01-31] MEDS: ALBUTEROL SO4 HFA INHALER IH PRN ×2 (09:22→17:26)
[2021-01-31] MEDS: PRENATAL VITAMINS W/ FOLIC ACID TABLET (FP) PO SCH (10:24)
[2021-01-31] MEDS: HYDROCHLOROTHIAZIDE 25 MG TABLET (FP) PO SCH (10:25)
[2021-01-31] MEDS: ASPIRIN 81 MG CHEWABLE TABLETS PO SCH (10:25)
[2021-01-31] MEDS: ENALAPRIL MALEATE 10 MG TABLET PO SCH (10:26)
[2021-01-31] MEDS: NICOTINE 21 MG/24 HOURS TOPICAL PATCH TD SCH (10:27)
[2021-01-31 14:07] LABS: SARS-CoV-2 NAA Not Detected (Not Detected)
[2021-01-31] MEDS: traZODone HCL 50 MG TABLET (FP) PO SCH (23:28)
[2021-01-31] MEDS: THIAMINE HCL 100 MG TABLET (FP) PO SCH (23:28)
[2021-01-31] MEDS: ATORVASTATIN CA 10 MG TABLET (FP) PO SCH (23:28)
[2021-01-31] MEDS: MELATONIN 5 MG TABLETS PO SCH (23:28)
[2021-02-01] MEDS ORDERED: LORazepam 0.5 MG TABLET PO ONE (05:00)
[2021-02-01] MEDS: GABAPENTIN 100 MG CAPSULE PO SCH (05:50)
[2021-02-01 08:58] VITALS: BP 105/69; PULSE 77; TEMP 97.1
[2021-02-01] MEDS: ENALAPRIL MALEATE 10 MG TABLET PO SCH (09:48)
[2021-02-01] MEDS: ALBUTEROL SO4 HFA INHALER IH PRN (09:48)
[2021-02-01] MEDS: PRENATAL VITAMINS W/ FOLIC ACID TABLET (FP) PO SCH (09:48)
[2021-02-01] MEDS: HYDROCHLOROTHIAZIDE 25 MG TABLET (FP) PO SCH (09:48)
[2021-02-01] MEDS: ASPIRIN 81 MG CHEWABLE TABLETS PO SCH (09:48)
[2021-02-01] MEDS: NICOTINE 21 MG/24 HOURS TOPICAL PATCH TD SCH (09:48)
== END 2021-02-01 11:43 | disposition home or self-care (01) | DRG 775 ==
LOC: YASAS 15:58 → Y3N 19:05
PROVIDERS: ADMIT Allergy & Immunology; ATTEND Allergy & Immunology
PROC: HZ2ZZZZ Detoxification Services for Substance Abuse Treatment (ICD-10-PCS; principal; 2021-01-28)
DX: F10.230 Alcohol dependence with withdrawal, uncomplicated (principal); F12.20 Cannabis dependence, uncomplicated; F17.210 Nicotine dependence, cigarettes, uncomplicated; F31.9 Bipolar disorder, unspecified; F19.24 Other psychoactive substance dependence with psychoactive substance-induced mood disorder; G40.509 Epileptic seizures related to external causes, not intractable, without status epilepticus; G47.00 Insomnia, unspecified; I10 Essential (primary) hypertension; I69.854 Hemiplegia and hemiparesis following other cerebrovascular disease affecting left non-dominant side; J45.20 Mild intermittent asthma, uncomplicated; K70.30 Alcoholic cirrhosis of liver without ascites; E78.5 Hyperlipidemia, unspecified; B18.2 Chronic viral hepatitis C; Z99.89 Dependence on other enabling machines and devices
CPT/HCPCS: 36415; 80053; 81025; 84450; 84460; 84520; 85027; 86593; 86780; 93005; 93010; C9803; Q0162; U0003; U0005